=== PATIENT | male | born 1995 | race African-American/Black ===

== ENCOUNTER 2021-07-12 11:21 | Emergency (ER) | payer MEDICAID ==
[~2021-07-12] VITALS: Ht 167.6 cm; Wt 95.0 kg
[2021-07-12 11:57] VITALS: BP 141/87
[2021-07-12] MEDS ORDERED: ACYC200C31 MT (14:40)
== END 2021-07-12 15:15 | disposition home or self-care (01) ==
LOC: ER 12:10
DX: Z20.2 Contact with and (suspected) exposure to infections with a predominantly sexual mode of transmission (principal); N48.5 Ulcer of penis
CPT/HCPCS: 86592; 99283